=== PATIENT | male | born 1955 | race Caucasian/White ===

== ENCOUNTER 2017-03-15 03:20 | Emergency (ER) | payer MEDICAID, OTHER ==
[~2017-03-15] VITALS: Ht 170.2 cm; Wt 77.1 kg
[~2017-03-15 03:20] MED LIST: ALBU6.7H IH; ASPI81TA31 PO; CLOP75TA15 PO; FLUT1DIS29 IH; HYDR-548 PO; IPRA4AER INH
--- NOTE | 2017-03-15 03:40 | NUR ---
PATIENT WALKED INTO ER C/O CP X1 WEEK. PATIENT STATES HAS BEEN FREQUENTLY FALLING FOR SEVERAL WEEKS AND HERE FOR EVAL
[2017-03-15] MEDS ORDERED: WARFARIN PO (03:43)
[2017-03-15] MEDS ORDERED: PANT40TA2 PO (03:43)
[2017-03-15] MEDS ORDERED: ATOR40TA PO (03:43)
[2017-03-15] MEDS ORDERED: ALBUTEROL SULFATE 2.5 MG/3 ML NEBU NEB ONE (04:00)
[2017-03-15] MEDS ORDERED: IPRATROPIUM BROMIDE 0.5 MG/2.5 ML NEBU NEB ONE (04:00)
[2017-03-15] MEDS ORDERED: IPRATROPIUM BROMIDE 0.5 MG/2.5 ML NEBU ONE (04:23)
[2017-03-15] MEDS ORDERED: ALBUTEROL SULFATE 2.5 MG/3 ML NEBU ONE (04:23)
--- NOTE | 2017-03-15 04:30 | NUR ---
PATIENT SLEEPING ON GURNY WITH NO DISTRESS NOTED
[2017-03-15 04:36] LABS: BASOPHILS # (AUTO) 0.1 K/uL (0.0-8.0); BASOPHILS % (AUTO) 1.8 % (0.0-2.0); EOSINOPHILS # (AUTO) 0.1 K/uL (0.0-0.7); EOSINOPHILS % (AUTO) 1.6 % (0.0-7.0); HEMATOCRIT 35.8 % (40-50); HEMOGLOBIN 11.6 G/DL (14.0-18.0); LYMPHOCYTES # (AUTO) 2.2 K/UL (0.8-4.8); LYMPHOCYTES % (AUTO) 34.9 % (20.5-51.5); MEAN CORPUSCULAR HGB CONC 32 g/dL (32.0-37.0); MEAN CORPUSCULAR VOLUME 95.6 FL (82.0-92.0); MONOCYTES # (AUTO) 0.5 K/UL (0.1-1.30); NEUTROPHILS # (AUTO) 3.5 K/UL (1.8-8.9); NEUTROPHILS % (AUTO) 53.7 % (38.5-71.5); PLATELET COUNT (AUTO) 286 K/UL (150-450); RED BLOOD CELL COUNT(AUTO) 3.74 MIL/UL (4.7-6.1); WHITE BLOOD COUNT (AUTO) 6.4 K/UL (4.0-11.2)
[2017-03-15 04:46] LABS: POTASSIUM 3.5 mmol/L (3.5-5.1)
[2017-03-15 06:28] VITALS: BP 138/76
--- NOTE | 2017-03-15 06:49 | NUR ---
Patient discharged to home in stable conditon. Written and verbal after care instructions given. Patient verbalizes understanding of instructions. WALKED OUT OF ER WITH STEADY GAIT. NO DISTRESS NOTED
== END 2017-03-15 06:49 | disposition home or self-care (01) ==
LOC: ER 03:23
DX: R42 Dizziness and giddiness (principal); J98.01 Acute bronchospasm; D64.9 Anemia, unspecified; Z88.0 Allergy status to penicillin; Z91.012 Allergy to eggs; Z91.013 Allergy to seafood; Z79.01 Long term (current) use of anticoagulants; Z79.82 Long term (current) use of aspirin; F17.200 Nicotine dependence, unspecified, uncomplicated; I25.2 Old myocardial infarction; J44.9 Chronic obstructive pulmonary disease, unspecified; Z95.5 Presence of coronary angioplasty implant and graft
CPT/HCPCS: 36415; 70450; 71010; 80048; 83880; 85025; 85730; 93005; 94640; 99285; A4663; J3590